=== PATIENT | female | born 1960 | race Caucasian/White ===

== ENCOUNTER 2017-07-07 13:29 | Inpatient (IN) | payer MEDICARE ==
[~2017-07-07] VITALS: Ht 167.6 cm; Wt 80.7 kg
[2017-07-07] MEDS ORDERED: ASPIRIN 81 MG CHEWABLE TABLET PO ONE (14:00)
[2017-07-07] MEDS ORDERED: NITROGLYCERIN 2% (1 GM=INCH) PACKET TP ONE (14:00)
[2017-07-07 14:07] LABS: BASOPHILS % (AUTO) 0.6 % (0.0-2.0); EOSINOPHILS % (AUTO) 0.6 % (1.0-6.0); HEMATOCRIT 36.3 % (36-46); LYMPHOCYTES # (AUTO) 1.9 K/uL (1.0-4.8); LYMPHOCYTES % (AUTO) 20.3 % (22.0-44.0); MEAN CORPUSCULAR HEMOGLOBIN 30.8 pg (26.0-34.0); MEAN CORPUSCULAR HGB CONC 33.1 G/dL (31.0-37.0); MEAN CORPUSCULAR VOLUME 93 fL (80-100); MONOCYTES # (AUTO) 0.5 K/uL (0.1-1.0); MONOCYTES % (AUTO) 4.9 % (2.0-9.0); NEUTROPHILS # (AUTO) 7.1 K/uL (1.8-7.7); NEUTROPHILS % (AUTO) 73.6 % (40.0-70.0); PLATELET COUNT (AUTO) 198 K/uL (150-450); RED CELL DISTRIBUTION WIDTH 16.3 % (11.5-14.5); WHITE BLOOD COUNT (AUTO) 9.6 K/uL (4.5-11.0)
[2017-07-07 14:23] LABS: ANION GAP 7 mmol/L (8-16); CALCIUM, TOTAL 8.6 mg/dL (8.8-10.5); CARBON DIOXIDE 27 mmol/L (22-29); CHLORIDE 107 mmol/L (98-107); CREATININE 1.39 mg/dL (0.60-1.30); GLOMERULAR FILTR. RATE CALC 39 mL/min (>60); POTASSIUM 4.8 mmol/L (3.5-5.1); SODIUM SERUM 141 mmol/L (136-145); UREA NITROGEN, BLOOD 14 mg/dL (7-18)
[2017-07-07 14:31] LABS: ALANINE AMINOTRANSFERASE 57 U/L (12-78); ALBUMIN 3.2 g/dL (3.4-5.0); ASPARTATE AMINOTRANSFERASE 31 U/L (15-37); BILIRUBIN,TOTAL 1.1 mg/dL (0.1-1.0); CREATINE KINASE, TOTAL 50 U/L (26-192); TOTAL PROTEIN, SERUM 6.2 g/dL (6.4-8.2)
[2017-07-07 14:36] LABS: B-TYPE NATRIURETIC PEPTIDE 3330 pg/mL (0-100)
[2017-07-07] MEDS ORDERED: FUROSEMIDE 40 MG/4 ML VIAL IVP ONE (14:45)
[2017-07-07] MEDS ORDERED: ACETAMINOPHEN 325 MG TABLET PO PRN (15:00)
[2017-07-07 15:31] VITALS: BP 143/82
[2017-07-07] MEDS ORDERED: MAGNESIUM HYDROXIDE SUSPENSION 30 ML UDCUP PO PRN (18:45)
[2017-07-07] MEDS: ACETAMINOPHEN 325 MG TABLET PO PRN (19:29)
[2017-07-07] MEDS: DOCUSATE SODIUM 100 MG CAPSULE PO SCH (19:29)
[2017-07-07 19:31] VITALS: BP 143/92
[2017-07-07 23:39] VITALS: BP 141/77
[2017-07-08 07:22] LABS: BASOPHILS % (AUTO) 0.4 % (0.0-2.0); EOSINOPHILS % (AUTO) 0 % (1.0-6.0); HEMATOCRIT 33.8 % (36-46); HEMOGLOBIN 11.2 g/dL (12.0-16.0); LYMPHOCYTES # (AUTO) 2.5 K/uL (1.0-4.8); MEAN CORPUSCULAR HEMOGLOBIN 30.9 pg (26.0-34.0); MEAN CORPUSCULAR HGB CONC 33.2 G/dL (31.0-37.0); MEAN CORPUSCULAR VOLUME 93 fL (80-100); MONOCYTES # (AUTO) 0.5 K/uL (0.1-1.0); MONOCYTES % (AUTO) 6.7 % (2.0-9.0); NEUTROPHILS # (AUTO) 5.2 K/uL (1.8-7.7); NEUTROPHILS % (AUTO) 62.9 % (40.0-70.0); PLATELET COUNT (AUTO) 183 K/uL (150-450); RED BLOOD CELL COUNT(AUTO) 3.63 MIL/uL (4.00-5.20); RED CELL DISTRIBUTION WIDTH 16.5 % (11.5-14.5); WHITE BLOOD COUNT (AUTO) 8.2 K/uL (4.5-11.0)
[2017-07-08 07:31] LABS: CALCIUM, TOTAL 8.3 mg/dL (8.8-10.5); CREATININE 1.44 mg/dL (0.60-1.30)
[2017-07-08 07:32] VITALS: BP 120/89
[2017-07-08] MEDS: FUROSEMIDE 40 MG/4 ML VIAL IVP SCH (09:47)
[2017-07-08] MEDS: PANTOPRAZOLE SODIUM 40 MG DR TABLET PO SCH (09:47)
[2017-07-08] MEDS: ASPIRIN 81 MG CHEWABLE TABLET PO SCH (09:47)
[2017-07-08] MEDS: DOCUSATE SODIUM 100 MG CAPSULE PO SCH ×2 (09:47→20:28)
[2017-07-08 11:20] VITALS: BP 130/78
[2017-07-08 15:38] VITALS: BP 102/54
[2017-07-08] MEDS: CARVEDILOL 6.25 MG TABLET PO SCH (17:12)
[2017-07-08 19:36] VITALS: BP 114/54
[2017-07-08] MEDS ORDERED: CARVEDILOL 6.25 MG TABLET PO ONE (19:45)
[2017-07-08] MEDS ORDERED: DIGOXIN 250 MCG/ML 2 ML AMP IVP ONE (20:15)
[2017-07-08] MEDS ORDERED: FUROSEMIDE 20 MG/2 ML VIAL IVP ONE (20:15)
[2017-07-08] MEDS ORDERED: CARVEDILOL 6.25 MG TABLET PO SCH (21:00)
[2017-07-08 21:23] VITALS: BP 147/73
[2017-07-08] MEDS ORDERED: ONDANSETRON HCL 4 MG/2 ML VIAL IVP PRN ×2 (21:30→21:45)
[2017-07-08] MEDS ORDERED: ZOLPIDEM TARTRATE 5 MG TABLET PO PRN ×2 (21:30→21:45)
[2017-07-08] MEDS ORDERED: SIMETHICONE 80 MG CHEWABLE TABLET CHEW ONE (22:00)
[2017-07-09] VITALS (11 sets, daily range): BP systolic 75–141; BP diastolic 36–75
[2017-07-09] MEDS ORDERED: DILTIAZEM HCL 125 MG in DEXTROSE 5%-WATER 100 ML IV SCH ×2
[2017-07-09] MEDS ORDERED: SIMETHICONE 80 MG CHEWABLE TABLET CHEW SCH
[2017-07-09] MEDS: SIMETHICONE 80 MG CHEWABLE TABLET CHEW SCH ×4 (05:55→23:44)
[2017-07-09 06:23] LABS: ANION GAP 7 mmol/L (8-16); CARBON DIOXIDE 30 mmol/L (22-29); CHLORIDE 101 mmol/L (98-107); CREATININE 1.84 mg/dL (0.60-1.30); GLOMERULAR FILTR. RATE CALC 28 mL/min (>60); POTASSIUM 4.2 mmol/L (3.5-5.1); SODIUM SERUM 138 mmol/L (136-145); UREA NITROGEN, BLOOD 22 mg/dL (7-18)
[2017-07-09 06:24] LABS: CALCIUM, TOTAL 8.3 mg/dL (8.8-10.5); CREATINE KINASE, TOTAL 33 U/L (26-192)
[2017-07-09] MEDS ORDERED: SODIUM CHLORIDE 0.9% 250 ML IV ONE (06:25)
[2017-07-09] MEDS ORDERED: SODIUM CHLORIDE 0.9% 150 ML IV ONE ×2 (06:45→08:15)
[2017-07-09] MEDS: PANTOPRAZOLE SODIUM 40 MG DR TABLET PO SCH (08:16)
[2017-07-09] MEDS: DOCUSATE SODIUM 100 MG CAPSULE PO SCH ×2 (08:16→20:29)
[2017-07-09] MEDS: CARVEDILOL 6.25 MG TABLET PO SCH ×2 (08:16→23:44)
[2017-07-09] MEDS: ASPIRIN 81 MG CHEWABLE TABLET PO SCH (08:21)
[2017-07-09] MEDS: FUROSEMIDE 40 MG/4 ML VIAL IVP SCH (09:00)
[2017-07-09] MEDS ORDERED: AMIODARONE HCL 150 MG in DEXTROSE 5%-WATER 97 ML IV ONE (10:00)
[2017-07-09] MEDS ORDERED: AMIODARONE HCL 360 MG in DEXTROSE 5%-WATER 242.8 ML IV ONE (10:10)
[2017-07-09] MEDS ORDERED: HEPARIN SODIUM 25000 UNITS/D5W 250 ML IV PRN (13:27)
[2017-07-09] MEDS ORDERED: HEPARIN SODIUM,PORCINE 5,000 UNITS/ML VIAL IVP PRN ×2 (13:30)
[2017-07-09] MEDS ORDERED: HEPARIN SODIUM,PORCINE 5,000 UNITS/ML VIAL IVP ONE (13:30)
[2017-07-09 13:52] LABS: BASOPHILS # (AUTO) 0.07 K/uL (0.00-0.20); BASOPHILS % (AUTO) 0.5 % (0.0-2.0); EOSINOPHILS # (AUTO) 0.03 K/uL (0.00-0.70); EOSINOPHILS % (AUTO) 0.19 % (1.0-6.0); HEMATOCRIT 35.6 % (36-46); HEMOGLOBIN 11.7 g/dL (12.0-16.0); LYMPHOCYTES % (AUTO) 14.7 % (22.0-44.0); MEAN CORPUSCULAR HEMOGLOBIN 30.6 pg (26.0-34.0); MEAN CORPUSCULAR HGB CONC 32.7 G/dL (31.0-37.0); MEAN CORPUSCULAR VOLUME 94 fL (80-100); MONOCYTES # (AUTO) 1.2 K/uL (0.1-1.0); MONOCYTES % (AUTO) 8.8 % (2.0-9.0); NEUTROPHILS # (AUTO) 10.1 K/uL (1.8-7.7); NEUTROPHILS % (AUTO) 75.8 % (40.0-70.0); PLATELET COUNT (AUTO) 195 K/uL (150-450); RED BLOOD CELL COUNT(AUTO) 3.81 MIL/uL (4.00-5.20); RED CELL DISTRIBUTION WIDTH 15.9 % (11.5-14.5); WHITE BLOOD COUNT (AUTO) 13.3 K/uL (4.5-11.0)
[2017-07-09 14:02] LABS: INR 1.1 (0.9-1.1); PROTHROMBIN TIME 11.2 SEC (9.4-11.6)
[2017-07-09] MEDS ORDERED: AMIODARONE HCL 540 MG in DEXTROSE 5%-WATER 239.2 ML IV ONE (16:10)
[2017-07-09] MEDS: ACETYLCYSTEINE 20% 200 MG/ML 4 ML ORAL SOLUTION PO SCH (21:10)
[2017-07-09 21:44] LABS: APPEARANCE,URINE CLOUDY (CLEAR); GLUCOSE, URINE (UA) NEGATIVE (NEGATIVE); KETONES,URINE NEGATIVE (NEGATIVE); LEUKOCYTE ESTERASE ,URINE NEGATIVE (NEGATIVE); OCCULT BLOOD,URINE NEGATIVE (NEGATIVE); PH,URINE 5.5 (5.0-8.0); PROTEIN,URINE NEGATIVE (NEGATIVE)
[2017-07-09 21:47] LABS: ADD UA MICROSCOPIC NO
[2017-07-09] MEDS: ACETAMINOPHEN 325 MG TABLET PO PRN (23:45)
[2017-07-10] VITALS (26 sets, daily range): BP systolic 100–128; BP diastolic 48–76
[2017-07-10 06:20] LABS: BASOPHILS % (AUTO) 0.4 % (0.0-2.0); EOSINOPHILS % (AUTO) 0.3 % (1.0-6.0); HEMATOCRIT 35.3 % (36-46); HEMOGLOBIN 11.7 g/dL (12.0-16.0); LYMPHOCYTES # (AUTO) 3.4 K/uL (1.0-4.8); LYMPHOCYTES % (AUTO) 25.6 % (22.0-44.0); MEAN CORPUSCULAR HGB CONC 33.2 G/dL (31.0-37.0); MEAN CORPUSCULAR VOLUME 93 fL (80-100); MONOCYTES # (AUTO) 1.2 K/uL (0.1-1.0); MONOCYTES % (AUTO) 9.3 % (2.0-9.0); NEUTROPHILS # (AUTO) 8.5 K/uL (1.8-7.7); NEUTROPHILS % (AUTO) 64.4 % (40.0-70.0); PLATELET COUNT (AUTO) 198 K/uL (150-450); RED BLOOD CELL COUNT(AUTO) 3.79 MIL/uL (4.00-5.20); RED CELL DISTRIBUTION WIDTH 15.6 % (11.5-14.5); WHITE BLOOD COUNT (AUTO) 13.2 K/uL (4.5-11.0)
[2017-07-10 06:28] LABS: CALCIUM, TOTAL 8.3 mg/dL (8.8-10.5); CREATININE 1.74 mg/dL (0.60-1.30); POTASSIUM 4.3 mmol/L (3.5-5.1)
[2017-07-10] MEDS: SIMETHICONE 80 MG CHEWABLE TABLET CHEW SCH ×3 (06:28→17:04)
[2017-07-10] MEDS ORDERED: HEPARIN SODIUM 1000 UNITS/NS 1,000 ML ONE (08:36)
[2017-07-10] MEDS ORDERED: IOHEXOL 300 MG/ML 150 ML VIAL ONE (08:36)
[2017-07-10] MEDS ORDERED: LIDOCAINE HCL/PF 1% 30 ML VIAL ONE (08:36)
[2017-07-10] MEDS ORDERED: SODIUM BICARBONATE 150 MEQ in DEXTROSE 5%-WATER 850 ML IV ONE (09:00)
[2017-07-10] MEDS ORDERED: FentaNYL CITRATE-PF 100 MCG/2 ML VIAL ONE (09:33)
[2017-07-10] MEDS ORDERED: MIDAZOLAM HCL 2 MG/2 ML VIAL ONE (09:33)
[2017-07-10] MEDS ORDERED: HEPARIN SODIUM 1000 UNITS/NS 1,000 ML IARTER ONE (09:42)
[2017-07-10] MEDS ORDERED: LIDOCAINE HCL/PF 1% 30 ML VIAL INJ ONE (09:45)
[2017-07-10] MEDS ORDERED: IOHEXOL 300 MG/ML 150 ML VIAL IARTER ONE (09:45)
[2017-07-10] MEDS ORDERED: FentaNYL CITRATE-PF 100 MCG/2 ML VIAL IVP ONE (09:45)
[2017-07-10] MEDS ORDERED: MIDAZOLAM HCL 2 MG/2 ML VIAL IVP ONE (09:45)
[2017-07-10] MEDS ORDERED: AMIODARONE HCL 750 MG in DEXTROSE 5%-WATER 485 ML IV SCH (10:00)
[2017-07-10] MEDS: DOCUSATE SODIUM 100 MG CAPSULE PO SCH ×2 (10:56→21:02)
[2017-07-10] MEDS: CARVEDILOL 6.25 MG TABLET PO SCH ×2 (10:56→21:02)
[2017-07-10] MEDS: PANTOPRAZOLE SODIUM 40 MG DR TABLET PO SCH (10:56)
[2017-07-10] MEDS: ACETYLCYSTEINE 20% 200 MG/ML 4 ML ORAL SOLUTION PO SCH ×2 (10:56→21:02)
[2017-07-10] MEDS: ASPIRIN 81 MG CHEWABLE TABLET PO SCH (15:28)
[2017-07-10] MEDS: ACETAMINOPHEN 325 MG TABLET PO PRN (15:28)
[2017-07-10] MEDS: HEPARIN SODIUM,PORCINE 5,000 UNITS/ML VIAL SQ SCH (21:01)
[2017-07-10] MEDS: AMIODARONE HCL 200 MG TABLET PO SCH (21:02)
[2017-07-11 00:08] VITALS: BP 109/50
[2017-07-11 04:11] VITALS: BP 119/52
[2017-07-11] MEDS: SIMETHICONE 80 MG CHEWABLE TABLET CHEW SCH ×3 (06:00→12:00)
[2017-07-11 07:18] VITALS: BP 113/61
[2017-07-11] MEDS: DOCUSATE SODIUM 100 MG CAPSULE PO SCH (08:27)
[2017-07-11] MEDS: ASPIRIN 81 MG CHEWABLE TABLET PO SCH (08:27)
[2017-07-11] MEDS: CARVEDILOL 6.25 MG TABLET PO SCH (08:27)
[2017-07-11] MEDS: HEPARIN SODIUM,PORCINE 5,000 UNITS/ML VIAL SQ SCH (08:28)
[2017-07-11] MEDS: AMIODARONE HCL 200 MG TABLET PO SCH (08:28)
[2017-07-11] MEDS: PANTOPRAZOLE SODIUM 40 MG DR TABLET PO SCH (08:28)
[2017-07-11] MEDS: ACETYLCYSTEINE 20% 200 MG/ML 4 ML ORAL SOLUTION PO SCH (08:33)
[2017-07-11 11:32] LABS: CALCIUM, TOTAL 8.7 mg/dL (8.8-10.5); CREATININE 1.59 mg/dL (0.60-1.30); POTASSIUM 4.2 mmol/L (3.5-5.1)
[2017-07-11 11:36] LABS: MAGNESIUM 2.1 mg/dL (1.80-2.40); PHOSPHORUS 3.2 mg/dL (2.5-4.9)
[2017-07-11 12:04] VITALS: BP 107/57
[2017-07-11] MEDS ORDERED: AMIO100T4 PO (12:05)
[2017-07-11] MEDS ORDERED: CARV3 PO ×2 (12:05→12:30)
[2017-07-11] MEDS ORDERED: AMIO200T44 PO (12:30)
[2017-07-11] MEDS ORDERED: ASPI81 PO (12:30)
[2017-07-11] MEDS ORDERED: FURO20 PO (12:30)
== END 2017-07-11 13:30 | disposition home or self-care (01) | DRG 286 ==
LOC: EDSEX 13:36 → EMS 13:36 → 5S 15:03
PROVIDERS: ADMIT Internal Medicine; ATTEND Internal Medicine
PROC: 4A023N7 Measurement of Cardiac Sampling and Pressure, Left Heart, Percutaneous Approach (ICD-10-PCS; principal; 2017-07-10)
PROC: B2111ZZ Fluoroscopy of Multiple Coronary Arteries using Low Osmolar Contrast (ICD-10-PCS; 2017-07-10)
DX: I13.0 Hypertensive heart and chronic kidney disease with heart failure and stage 1 through stage 4 chronic kidney disease, or unspecified chronic kidney disease (principal); I50.23 Acute on chronic systolic (congestive) heart failure; N17.9 Acute kidney failure, unspecified; I42.0 Dilated cardiomyopathy; I48.92 Unspecified atrial flutter; I48.0 Paroxysmal atrial fibrillation; N18.9 Chronic kidney disease, unspecified; N20.0 Calculus of kidney; Z90.5 Acquired absence of kidney; Z90.13 Acquired absence of bilateral breasts and nipples; Z87.891 Personal history of nicotine dependence; Z85.528 Personal history of other malignant neoplasm of kidney; Z85.3 Personal history of malignant neoplasm of breast; Z90.722 Acquired absence of ovaries, bilateral
CPT/HCPCS: 76770; 80307; 82570; 83735; 84100; 84156; 84300; 84540; 93005; 93306; 96374; 99285; J0282; J1160; J1644; J1940; J2250; J2405; J3010; J3490; J7050; J7060; Q9967

== ENCOUNTER 2017-08-13 18:14 | Emergency (ER) | payer MEDICARE ==
[~2017-08-13 18:14] MED LIST: AMIO100T4 PO; AMIO200T44 PO; ASPI81 PO; CARV3 PO; FURO20 PO
== END 2017-08-13 19:03 | disposition left against medical advice (07) ==
LOC: EMS 18:18
DX: Z04.3 Encounter for examination and observation following other accident (principal); W19.XXXA Unspecified fall, initial encounter; Y93.89 Activity, other specified; Y92.89 Other specified places as the place of occurrence of the external cause; Y99.8 Other external cause status; Z53.21 Procedure and treatment not carried out due to patient leaving prior to being seen by health care provider

== ENCOUNTER 2017-08-13 23:48 | Emergency (ER) | payer MEDICARE ==
[~2017-08-13] VITALS: Ht 165.1 cm; Wt 80.0 kg
[2017-08-14 01:38] VITALS: BP 125/71
== END 2017-08-14 01:42 | disposition home or self-care (01) ==
LOC: EMS 23:50
DX: S00.83XA Contusion of other part of head, initial encounter (principal); S00.03XA Contusion of scalp, initial encounter; S10.93XA Contusion of unspecified part of neck, initial encounter; Z88.5 Allergy status to narcotic agent; W18.39XA Other fall on same level, initial encounter; Y93.89 Activity, other specified; Y92.830 Public park as the place of occurrence of the external cause; Y99.8 Other external cause status
CPT/HCPCS: 70450; 70486; 99284